=== PATIENT | female | born 1970 | race Caucasian/White ===

== ENCOUNTER 2018-05-28 09:58 | Day surgery (SDC) | payer BC ==
[~2018-05-28] VITALS: Ht 157.5 cm; Wt 59.4 kg
[~2018-05-28 09:58] MED LIST: GOLI50DI SQ
[2018-05-28] MEDS ORDERED: CEFAZOLIN 1 GM IVPB PREMIX 50 ML IV ONE (11:00)
[2018-05-28] MEDS ORDERED: ALFENTANIL HCL 1000 MCG/2 ML AMP IVP ONE (12:35)
[2018-05-28] MEDS ORDERED: LR 1,000 ML IV.SOLN IV ONE (12:35)
[2018-05-28] MEDS ORDERED: ONDANSETRON HCL 4 MG/2 ML VIAL IVP ONE (12:35)
[2018-05-28] MEDS ORDERED: MIDAZOLAM HCL 5 MG/5 ML VIAL IVP ONE (12:35)
[2018-05-28] MEDS ORDERED: KETOROLAC TROMETHAMINE 30 MG VIAL IVP ONE (12:35)
[2018-05-28] MEDS ORDERED: NS 1000 ML IV.SOLN IV ONE (12:35)
[2018-05-28] MEDS ORDERED: ROCURONIUM BROMIDE 10 MG/ML (ZEMURON) IV ONE (12:35)
[2018-05-28] MEDS ORDERED: DEXAMETHASONE SOD PHOSPHATE 4 MG/ML VIAL IVP ONE (12:35)
[2018-05-28] MEDS ORDERED: PROPOFOL 200MG/ 20ML VIAL (DIPRIVAN) IV ONE (12:35)
[2018-05-28] MEDS ORDERED: SEVOFLURANE 15 MIN GAS INH ONE (12:35)
[2018-05-28] MEDS ORDERED: LR 1,000 ML IV SCH (13:06)
[2018-05-28] MEDS ORDERED: MEPERIDINE HCL/PF 25 MG/ML DISP.SYRIN IVP PRN (13:15)
[2018-05-28] MEDS ORDERED: HYDROmorphone 1 MG INJ. 1 MG/ML AMPUL IVP PRN (13:15)
[2018-05-28] MEDS ORDERED: HYDROmorphone 2 MG/ML VIAL IVP PRN ×2 (13:15)
[2018-05-28 15:17] VITALS: BP_SYST 132
[2018-05-28] MEDS ORDERED: OXYCODONE/ACETAMINOPHEN 5-325 TABLET PO PRN (16:00)
[2018-05-28] MEDS ORDERED: ONDANSETRON HCL 4 MG/2 ML VIAL IVP PRN (16:00)
[2018-05-28] MEDS ORDERED: HYDROcodone/ACETAMIN 5-325 MG TAB (NORCO/ VICODIN) PO PRN (16:00)
== END 2018-05-28 15:00 | disposition home or self-care (01) ==
LOC: SDS 09:58 → SMU 09:58 → SDS 15:00
PROVIDERS: ATTEND Specialist
DX: N93.8 Other specified abnormal uterine and vaginal bleeding (principal); Z98.890 Other specified postprocedural states; Z88.8 Allergy status to other drugs, medicaments and biological substances; M06.9 Rheumatoid arthritis, unspecified; Z79.899 Other long term (current) drug therapy; G43.909 Migraine, unspecified, not intractable, without status migrainosus
CPT/HCPCS: 58558; 88305; J0690; J1100; J1885; J2250; J2405; J2704; J3490; J7030; J7120